=== PATIENT | male | born 1955 | race Caucasian/White ===

== ENCOUNTER 2017-07-25 01:51 | Emergency (ER) | payer MEDICARE ==
[~2017-07-25] VITALS: Ht 170.2 cm; Wt 93.0 kg
[~2017-07-25 01:51] MED LIST: CLON0.5T4 PO; ENAL20TA PO; FLUR15CA14 PO; FLUV100T2 PO; GLIP5TAB12 PO; LACT1CAP68 PO; METF500T4 PO; METR250T PO; RISP05 PO; SITA100T11 PO; TEMA15CA PO
[2017-07-25] MEDS ORDERED: ACETAMINOPHEN WITH CODEINE 300/30MG TABLET PO ONE (04:45)
[2017-07-25] MEDS ORDERED: KETOROLAC 30MG/ML VIAL IM ONE (05:00)
[2017-07-25 06:05] VITALS: BP 155/86
== END 2017-07-25 06:17 | disposition home or self-care (01) ==
LOC: ER 01:51
DX: M25.511 Pain in right shoulder (principal); M79.601 Pain in right arm; R53.1 Weakness; I10 Essential (primary) hypertension; E11.9 Type 2 diabetes mellitus without complications; F42.9 Obsessive-compulsive disorder, unspecified; Z79.84 Long term (current) use of oral hypoglycemic drugs; Z87.891 Personal history of nicotine dependence
CPT/HCPCS: 73030; 96372; 99284; J1885; A4565

== ENCOUNTER 2017-11-19 22:30 | Emergency (ER) | payer MEDICARE ==
[~2017-11-19] VITALS: Ht 167.6 cm; Wt 86.4 kg
[~2017-11-19 22:30] MED LIST changes: +CLON0.5T12 PO; -CLON0.5T4 PO; -METF500T4 PO; +METF500T6 PO
[2017-11-20] MEDS ORDERED: KETOROLAC 60MG/2ML VIAL IM ONE (01:00)
[2017-11-20 03:21] VITALS: BP 145/102
== END 2017-11-20 03:57 | disposition home or self-care (01) ==
LOC: ER 23:30
DX: M54.12 Radiculopathy, cervical region (principal); E11.9 Type 2 diabetes mellitus without complications; I10 Essential (primary) hypertension; Z79.899 Other long term (current) drug therapy; Z98.890 Other specified postprocedural states
CPT/HCPCS: 72125; 82962; 96372; 99284; J1885